=== PATIENT | female | born 1985 | race Hispanic/Latino ===

== ENCOUNTER 2021-01-02 15:02 | Emergency (ER) | payer OTHER, SELFPAY ==
[2021-01-02] MEDS ORDERED: HYDROcodone/Acetaminophen 5/325 mg Tablet ONE (15:32)
== END 2021-01-02 17:16 | disposition home or self-care (01) ==
LOC: ERS 15:02
DX: M54.9 Dorsalgia, unspecified (principal); V03.10XA Pedestrian on foot injured in collision with car, pick-up truck or van in traffic accident, initial encounter; M25.512 Pain in left shoulder
CPT/HCPCS: 71045; 72170; 93005